=== PATIENT | female | born 1945 | race Caucasian/White ===

== ENCOUNTER → 2017-06-24 | Outpatient (CLI) | payer MEDICARE ==
[~2017-06-24] MED LIST: ACID REDUCER200 MG PO; ACYCLOVIR 400400 M1 PO; ADVIL100 M2 PO; AMBIEN; AMBIEN 10 MG TA10 MG PO; AMBIEN 5 MG TABL5 M1 PO; ATACAND HCT 321 EACH PO; BESIVANCE5 ML; CARAFATE; CARAFATE 1 GM TA1 G1 PO; CARAFATE PO; CARAFATE1 GM/10 ML; COLACE100 MG PO; COUMADIN 2 MG TA2 M1; COUMADIN 5 MG TA5 M1; CRANBERRY500 M1 PO; CRESTOR5 MG PO; DIFLUCAN150 MG PO; FISH OIL 1,0001 EAC5 PO; FLEXERIL PO; GLUCOPHAGE500 MG PO; HERBAL ENERGY1 EACH PO; HYDROCODON-ACE1 EAC5; IBUPROFEN 200200 M1 PO; IRBESARTAN-HCT1 EAC1 PO; LUNESTA PO; LUNESTA3 MG PO; MEDROLDOSEPACK PO; NEURONTIN 300300 M1 PO; PERCOCET 5-3251 EACH PO; PERCOCET 7.5-31 EACH PO; PREMARIN VAGI42.5 G1 TOP; PROTONIX40 M2 PO; SPIRONOLACTONE25 M1 PO; TAGAMETTAB; TYLENOL EX-STR500 M2 PO; VITAMIN D1000 UNI1 PO; VITAMIN E800 UNIT PO; ZANAFLEX4 M1 PO; ZANTAC 150MG T150 M1 PO; ZOFRAN4 MG PO; ZYRTEC; ZYRTEC10 M1 PO; ZYRTEC10 M2 PO; [UNRECOGNIZED DRUG - CODE]; [UNRECOGNIZED DRUG - CODE] PO; [UNRECOGNIZED DRUG - OTHER]; [UNRECOGNIZED DRUG - REMARK]
== END ==
LOC: M.RAD 14:15
DX: M19.072 Primary osteoarthritis, left ankle and foot (principal); M19.071 Primary osteoarthritis, right ankle and foot; M21.612 Bunion of left foot; M21.611 Bunion of right foot

== ENCOUNTER → 2018-03-18 | Outpatient (CLI) | payer MEDICARE ==
[2018-03-18 09:26] LABS: ALBUMIN 3.9 g/dL (3.4-5.0); ALKALINE PHOSPHATASE 95 U/L (46-116); ANION GAP 10 mmol/L (7-16); BUN 22 mg/dL (7-18); CALCIUM 9.1 mg/dL (8.5-10.1); CHLORIDE 102 mmol/L (98-107); CHOLESTEROL 109 mg/dL (<200); CO2 26 mmol/L (21-32); GLUCOSE 127 mg/dL (70-99); HDL CHOLESTEROL 39 mg/dL (>40); LDL CHOLESTEROL 49 mg/dL (<100); POTASSIUM 4.3 mmol/L (3.5-5.1); SGOT 25 U/L (15-37); SGPT 40 U/L (30-65); SODIUM 138 mmol/L (136-145); TC:HDL 2.8 Ratio (Not establshd); TOTAL BILIRUBIN 0.6 mg/dL (<0.1-1.0); TRIGLYCERIDE 107 mg/dL (<150); VLDL 21 mg/dL (<40)
[2018-03-18 09:35] LABS: SERUM ASSESSMENT Clear
[2018-03-18 21:11] LABS: GLYCOHEMOGLOBIN (HGB A1C) 6.6 % (4.8-5.6)
== END ==
LOC: M.LAB 08:35
PROVIDERS: Student in an Organized Health Care Education/Training Program
DX: E11.9 Type 2 diabetes mellitus without complications (principal)

== ENCOUNTER → 2019-06-01 | Outpatient (CLI) | payer MEDICARE ==
[2019-06-01 16:10] LABS: POTASSIUM 3.5 mmol/L (3.5-5.1)
== END ==
LOC: M.LAB 15:45
PROVIDERS: Internal Medicine Cardiovascular Disease
DX: E78.2 Mixed hyperlipidemia (principal); I10 Essential (primary) hypertension

== ENCOUNTER → 2020-09-07 | Outpatient (CLI) | payer MEDICARE | LOC: M.ULTRA 13:16 | PROVIDERS: ATTEND Internal Medicine Endocrinology, Diabetes & Metabolism | DX: E04.2 Nontoxic multinodular goiter (principal) ==

== ENCOUNTER → 2021-03-18 | Outpatient (CLI) | payer MEDICARE | LOC: M.MRI 13:30 | PROVIDERS: ATTEND Nurse Practitioner Family | DX: S76.312A Strain of muscle, fascia and tendon of the posterior muscle group at thigh level, left thigh, initial encounter (principal); S76.812A Strain of other specified muscles, fascia and tendons at thigh level, left thigh, initial encounter; M16.12 Unilateral primary osteoarthritis, left hip; M51.36 Other intervertebral disc degeneration, lumbar region; M25.552 Pain in left hip; X58.XXXA Exposure to other specified factors, initial encounter; Y93.89 Activity, other specified; Y92.89 Other specified places as the place of occurrence of the external cause; Y99.8 Other external cause status ==